=== PATIENT | female | born 1975 | race Caucasian/White ===

== ENCOUNTER 2017-03-12 15:03 | Emergency (ER) | payer OTHER ==
[~2017-03-12] VITALS: Ht 160 cm; Wt 77.0 kg
[2017-03-12 15:06] VITALS: Ht 160 cm; Wt 77.0 kg
[2017-03-12 16:40] LABS: BASOPHILS % 0.4 % (0.0-2.0); EOSINOPHILS # 0.1 10^3/ul (0.0-0.5); EOSINOPHILS % 1.6 % (0.0-7.0); HEMATOCRIT 39.7 % (37.0-47.0); HEMOGLOBIN 13.7 g/dl (12.0-16.0); LYMPHOCYTES % 27.4 % (15.0-51.0); MEAN CORPUSCULAR HEMOGLOBIN 31.7 pg (29.0-33.0); MEAN CORPUSCULAR HGB CONC 34.5 g/dl (32.0-37.0); MEAN CORPUSCULAR VOLUME 91.9 fl (82.0-101.0); MONOCYTE # 0.6 10^3/ul (0.3-0.9); MONOCYTES % 8.1 % (0.0-11.0); NEUTROPHIL # 4.6 10^3/ul (1.6-7.5); NEUTROPHILS % 62.1 % (39.0-77.0); PLATELET COUNT 248 10^3/UL (140-415); RED BLOOD COUNT 4.32 10^6/ul (4.20-5.40); RED CELL DISTRIBUTION WIDTH 12.4 % (11.5-14.5); WHITE BLOOD COUNT 7.4 10^3/ul (4.8-10.8)
[2017-03-12 16:55] LABS: ADD UMIC YES; UR ASCORBIC ACID NEGATIVE (NEGATIVE); UR BILIRUBIN (Dip) NEGATIVE (NEGATIVE); UR BLOOD (Dip) 2+ mg/dL (NEGATIVE); UR CLARITY CLEAR (CLEAR); UR COLOR YELLOW (YELLOW); UR GLUCOSE (Dip) NEGATIVE (NEGATIVE); UR KETONES (Dip) NEGATIVE (NEGATIVE); UR LEUKOCYTE ESTERASE (Dip) NEGATIVE Leu/ul (NEGATIVE); UR NITRITE (Dip) NEGATIVE (NEGATIVE); UR RBC 2 /HPF (0-5); UR SPECIFIC GRAVITY (Dip) 1.012 (1.003-1.030); UR TOTAL PROTEIN (Dip) NEGATIVE (NEGATIVE); UR UROBILINOGEN (Dip) NEGATIVE (NEGATIVE)
--- NOTE | 2017-03-12 17:03 | RADRPT ---
PROCEDURE: OB Ultrasound. CLINICAL INDICATION: Positive test. Vaginal bleeding. TECHNIQUE: Ultrasound of the pelvis was performed with transabdominal and transvaginal sonography in the axial and sagittal planes. COMPARISON: No prior study is available for comparison. FINDINGS: There is a single irregular intrauterine gestational sac. pole and yolk sac are not visualize d. Mean sac diameter is 0.80 cm. Menstrual age by ultrasound dates is 5 weeks 3 days. The right ovary is not visualized. The left ovary appears normal measuring 2.5 x 1.7 x 1.6 cm. Color Doppler and pulsed Doppler sonography demonstrate normal flow to the left ovary. There is no other pelvic mass or free fluid. IMPRESSION: 1. Single irregular intrauterine gestational sac with pole and yolk sac not visualized. This may indicate failed or early gestation. Follow-up ultrasound in 10 days is advised. 2. Right ovary not visualized. 3. Otherwise unremarkable study. RPTAT: QQ .Velasquez Butcher MD, MD Date Time Electronically viewed and signed by .Velasquez Butcher MD, on 03/12/2017 17:03 .R/
[2017-03-12] MEDS ORDERED: TYL500 PO (17:47)
--- NOTE | 2017-03-12 17:59 | ERD ---
ER Documentation Chief Complaint Date/Time DATE: 03/12/17 TIME: 17:57 Chief Complaint 7/10 pelvic pain x today, denies bleeding 7 weeks HPI This is a 41-year-old female presents to the ER stating she is currently 7 weeks and has had pelvic pain today. Pelvic pain is described as cramping in nature and nonradiating. She has not tried anything for the pain and denies any back pain. Patient denies any vaginal bleeding. She denies any urinary frequency or dysuria. Patient denies any vaginal discharge. A1. ROS 12 point review of systems was done, all negative except per HPI. Medications Home Meds Active Scripts Acetaminophen* (Tylenol*) 500 Mg Tab, 1000 MG PO Q8H Y for PAIN AND OR ELEVATED TEMP for 3 Days, TAB Prov:MINERVA TAYLOR 03/12/17 Allergies Allergies: Coded Allergies: No Known Allergy (Unverified , 03/12/17) PMhx/Soc Medical and Surgical Hx: pt denies Medical Hx, pt denies Surgical Hx Hx Alcohol Use: No Hx Substance Use: No Hx Tobacco Use: No Smoking Status: Never smoker Physical Exam Vitals Vital Signs Date Time Temp Pulse Resp B/P Pulse Ox O2 Delivery O2 Flow Rate FiO2 03/12/17 15:06 99.2 74 18 124/73 98 Physical Exam GENERAL: The patient is well developed and appropriate for usual state of health , in no apparent distress. HEENT: Atraumatic. CHEST: Clear to auscultation bilaterally. There are no rales, wheezes or rhonchi. HEART: Regular rate and rhythm. No murmurs, clicks, rubs or gallops. ABDOMEN: Soft, nontender and nondistended. Good bowel sounds. No rebound or guarding. No gross peritonitis. No gross organomegaly or masses. No [place] sign or McBurney point tenderness. BACK: No midline or flank tenderness.. NEURO: Alert and oriented. Result Diagram: 03/12/17 1615 Results 24 hrs Laboratory Tests Test 03/12/17 16:15 White Blood Count 7.410^3/ul Red Blood Count 4.3210^6/ul Hemoglobin 13.7g/dl Hematocrit 39.7% Mean Corpuscular Volume 91.9fl Mean Corpuscular Hemoglobin 31.7pg Mean Corpuscular Hemoglobin Concent 34.5g/dl Red Cell Distribution Width 12.4% Platelet Count 86094^3/UL Mean Platelet Volume 10.0fl Neutrophils % 62.1% Lymphocytes % 27.4% Monocytes % 8.1% Eosinophils % 1.6% Basophils % 0.4% Nucleated Red Blood Cells % 0.0/100WBC Neutrophils # 4.610^3/ul Lymphocytes # 2.010^3/ul Monocytes # 0.610^3/ul Eosinophils # 0.110^3/ul Basophils # 0.010^3/ul Nucleated Red Blood Cells # 0.010^3/ul Urine Color YELLOW Urine Clarity CLEAR Urine pH 5.0 Urine Specific [place] 1.012 Urine Ketones NEGATIVEmg/dL Urine Nitrite NEGATIVEmg/dL Urine Bilirubin NEGATIVEmg/dL Urine Urobilinogen NEGATIVEmg/dL Urine Leukocyte Esterase NEGATIVELeu/ul Urine Microscopic RBC 2/HPF Urine Microscopic WBC 0/HPF Urine Hemoglobin 2+mg/dL Urine Glucose NEGATIVEmg/dL Urine Total Protein NEGATIVEmg/dl Beta HCG, Quantitative 7904.5mIU/ml [place] [id number] Radiology Main Line: [phone] DIAGNOSTIC IMAGING REPORT Patient: LAILA LUCIANO : 1975 Age: 41 Sex: F [id number] DOS: 03/12/17 0000 Ordering MD: MINERVA TAYLOR PA-C Location: [facility] Room/Bed: PROCEDURE: OB Ultrasound. CLINICAL INDICATION: Positive test. Vaginal bleeding. TECHNIQUE: Ultrasound of the pelvis was performed with transabdominal and transvaginal sonography in the axial and sagittal planes. COMPARISON: No prior study is available for comparison. FINDINGS: There is a single irregular intrauterine gestational sac. pole and yolk sac are not visualized. Mean sac diameter is 0.80 cm. Menstrual age by ultrasound dates is 5 weeks 3 days. The right ovary is not visualized. The left ovary appears normal measuring 2.5 x 1.7 x 1.6 cm. Color Doppler and pulsed Doppler sonography demonstrate normal flow to the left ovary. There is no other pelvic mass or free fluid. IMPRESSION: 1. Single irregular intrauterine gestational sac with pole and yolk sac not visualized. This may indicate failed or early gestation. Follow- up ultrasound in 10 days is advised. 2. Right ovary not visualized. 3. Otherwise unremarkable study. RPTAT: QQ .Velasquez Butcher MD, MD Date Time Electronically viewed and signed by .Velasquez Butcher MD, MD on 03/12/2017 17:03 .R/ CC: MINERVA TAYLOR Procedures/MDM Differential diagnosis: Threatened , missed , incomplete , ectopic , molar , UTI, pyelonephritis. This is a 41 -year-old female presents to the ER with pelvic pain, at this time there is an irregular intrauterine gestational sac with no pole or yolk sac. Patient' s quantitative hCG was above the discriminatory zone, therefore labors on-call was consulted. Per labors patient is stable for outpatient follow-up and can return to ER in 48 hours for recheck. Patient is to return to ER sooner if symptoms worsen. My medical decision making shared with the patient she understands and agrees with plan. Departure Diagnosis: Primary Impression: Threatened Condition: Stable Patient Instructions: Possible Miscarriage (Threatened ) Additional Instructions: Regrese a estas instalaciones dentro de DOS HERZOG para un examen de seguimiento.Regrese antes si valenzuela condicin se empeora. MINERVA TAYLOR Mar 12, 2017 17:59
== END 2017-03-12 18:04 | disposition home or self-care (01) ==
LOC: MERGE 15:03 → FTE 15:03
DX: O20.0 Threatened abortion (principal); R10.2 Pelvic and perineal pain; Z3A.01 Less than 8 weeks gestation of pregnancy
CPT/HCPCS: 36415; 76801; 76817; 81001; 84702; 85025; 86900; 86901; Z7502

== ENCOUNTER 2017-03-14 08:07 | Emergency (ER) | payer MEDICAID, OTHER ==
[~2017-03-14] VITALS: Wt 75.0 kg
[~2017-03-14 08:07] MED LIST: TYL500 PO
--- NOTE | 2017-03-14 08:30 | ERD ---
ER Documentation Chief Complaint Date/Time DATE: 03/14/17 TIME: 08:28 Chief Complaint LOWER ABD PAIN WITH NO VAG BLEED WKS PREG. NO N.V HPI Is a 41-year-old female presents to the emergency department today to recheck her hormone level and get a repeat ultrasound. Denies any vaginal bleeding, abdominal pain, dysuria, fevers or chills, nausea or vomiting ROS All systems reviewed and are negative except as per history of present illness. Medications Home Meds Active Scripts Acetaminophen* (Tylenol*) 500 Mg Tab, 1000 MG PO Q8H Y for PAIN AND OR ELEVATED TEMP for 3 Days, TAB Prov:MINERVA TAYLOR C 03/12/17 Allergies Allergies: Coded Allergies: No Known Drug Allergy (Verified Allergy, Unknown, 05/05/14) PMhx/Soc History of Surgery: Yes (cholecystectomy) Anesthesia Reaction: No Hx Neurological Disorder: No Hx Respiratory Disorders: No Hx Cardiac Disorders: No Hx Psychiatric Problems: No Hx Miscellaneous Medical Probl: Yes (stomach ulcer/gerd) Hx Alcohol Use: No Hx Substance Use: No Hx Tobacco Use: No Smoking Status: Never smoker Physical Exam Vitals Vital Signs Date Time Temp Pulse Resp B/P Pulse Ox O2 Delivery O2 Flow Rate FiO2 03/14/17 08:10 98.6 68 19 130/68 99 Physical Exam Const: Obese, no acute distress Head: Atraumatic Eyes: Normal Conjunctiva ENT: Normal External Ears, Nose and Mouth. Neck: Full range of motion..~ No meningismus. Resp: Clear to auscultation bilaterally Cardio: Regular rate and rhythm, no murmurs Abd: Soft, non tender, non distended. Normal bowel sounds Skin: No petechiae or rashes Back: No midline or flank tenderness Ext: No cyanosis, or edema Neur: Awake and alert Psych: Normal Mood and Affect Results 24 hrs Laboratory Tests Test 03/14/17 08:30 Beta HCG, Quantitative 55293.0mIU/ml DIAGNOSTIC IMAGING REPORT Patient: LAILA LUCIANO : 1975 Age: 41 Sex: F MR #: [id number] DOS: 03/14/17 0823 Ordering MD: TONY CAMPBELL PA-C Location: [facility] Room/Bed: PROCEDURE: US OB. CLINICAL INDICATION: Pelvic pain. TECHNIQUE: Multiple sonographic images of the pelvis were obtained. Transabdominal and transvaginal views of the pelvis are available for review. The images were reviewed on a PACS workstation. COMPARISON: No prior studies are available for comparison. FINDINGS: The uterus measures 11.8 x 4.8 x 6.2 cm. Intrauterine gestational sac is identified. Gestational sac size is 1.2 cm corresponding to 5 weeks 5 days. No definite embryonic pole or cardiac activity is identified. A normal yolk sac is seen. No subchorionic hemorrhage is identified. The adnexa are unremarkable. There is no free fluid. There are no adnexal masses or free fluid in the pelvis. Right ovary was not visualized. Left ovary measures 2.4 x 1.5 x 1.6 cm. IMPRESSION: 1. Intrauterine gestational sac dating 5 weeks 5 days by mean sac diameter. No definite embryonic pole or cardiac activity is yet identified. This may represent a normal early intrauterine . Recommend follow-up if indicated . 2. No adnexal masses or free fluid in the pelvis. RPTAT: QQ .Colby Lowe MD, MD Date Time Electronically viewed and signed by .Colby Lowe MD, MD on 03/14/2017 09:13 .L/ CC: TONY CAMPBELL PA-C Procedures/[facility] This G 5 41-year-old female who presents to the emergency department today for repeat of her hormone level and repeat ultrasound. Patient was seen here in the emergency department on March 12, 2017, 2 days ago for pelvic pain at that time. Patient currently denies any pelvic pain. Patient's laboratory work showed normal hemoglobin at that time. She had no elevated white blood cell count. Her UA was negative for infection. Her beta quant hCG on March 12, 2017 was 7904.5. Her Rh status was A positive Patient's ultrasound showed a single irregular gestational sac with pole and yolk sac not yet visualized. It was recommended that the patient repeat an ultrasound in 10 days. Patient returns today 2 days later. Today I did repeat beta quant and ultrasound Beta quant hCG 65298.0 Ultrasound shows an intrauterine gestational sac dating 5 weeks and 5 days by mean sac diameter. There is no definite embryonic pole or cardiac activity identified. A normal yolk sac is seen no subphrenic hemorrhage is identified. Adnexa are unremarkable. There is no free fluid. There are no adnexal masses or free fluid in the pelvis I did place a call to the laborist window/distribution clerk, Dr. Alas who feels that the patient is stable for discharge and outpatient management. He recommended that the patient can get a repeat ultrasound in 1 week and follow her beta quant again at that time. Patient is scheduled to see her gis database administrator at [facility] on March 19. I have explained to the patient that she does need to keep that appointment. Patient's ultrasound and beta quant is progressing at this time she may have a normal early intrauterine based on her latest ultrasound. Other differentials to consider early failed given that she does not yet have pole identified or cardiac activity identified however this may just be an early . At this time I do have low suspicion for ectopic , tubo-ovarian abscess or ovarian torsion. Patient has no abdominal pain on physical exam and of low suspicion for acute surgical abdomen. At this time the patient is stable for discharge and outpatient management. Patient should follow up with their PCP in the next 1-2 days. They may return to the emergency department sooner for any persistent or worsening of symptoms. Patient understood and agreed with the plan. Departure Diagnosis: Primary Impression: Follow-up exam Condition: TONY Lazar PA-C Mar 14, 2017 08:30
--- NOTE | 2017-03-14 09:13 | RADRPT ---
PROCEDURE: US OB. CLINICAL INDICATION: Pelvic pain. TECHNIQUE: Multiple sonographic images of the pelvis were obtained. Transabdominal and transvagin al views of the pelvis are available for review. The images were reviewed on a PACS workstation. COMPARISON: No prior studies are available for comparison. FINDINGS: The uterus measures 11.8 x 4.8 x 6.2 cm. Intrauterine gestational sac is identified. Gestational s ac size is 1.2 cm corresponding to 5 weeks 5 days. No definite embryonic pole or cardiac activity is identified. A normal yolk sac is seen. No subchorionic hemorrhage is identified. The adnexa are u nremarkable. There is no free fluid. There are no adnexal masses or free fluid in the pelvis. Righ t ovary was not visualized. Left ovary measures 2.4 x 1.5 x 1.6 cm. IMPRESSION: 1. Intrauterine gestational sac dating 5 weeks 5 days by mean sac diameter. No definite embryonic p ole or cardiac activity is yet identified. This may represent a normal early intrauterine . Recommend follow-up if indicated . 2. No adnexal masses or free fluid in the pelvis. RPTAT: QQ .Colby Lowe MD, Date Time Electronically viewed and signed by .Colby Lowe MD, on 03/14/2017 09:13 .L/
== END 2017-03-14 09:51 | disposition home or self-care (01) ==
LOC: FTE 08:07
DX: O26.891 Other specified pregnancy related conditions, first trimester (principal); R10.30 Lower abdominal pain, unspecified; R10.2 Pelvic and perineal pain; Z3A.01 Less than 8 weeks gestation of pregnancy
CPT/HCPCS: 36415; 76801; 76817; 84702; Z7502

== ENCOUNTER 2017-05-15 15:53 | Emergency (ER) | payer OTHER ==
[~2017-05-15] VITALS: Wt 76.5 kg
[2017-05-15] MEDS ORDERED: ACETAMINOPHEN 325 MG TAB PO STA (16:53)
[2017-05-15 17:33] LABS: ADD UMIC NO; UR ASCORBIC ACID 40 mg/dL (NEGATIVE); UR BILIRUBIN (Dip) NEGATIVE (NEGATIVE); UR BLOOD (Dip) NEGATIVE (NEGATIVE); UR CLARITY CLEAR (CLEAR); UR COLOR YELLOW (YELLOW); UR GLUCOSE (Dip) NEGATIVE (NEGATIVE); UR KETONES (Dip) NEGATIVE (NEGATIVE); UR LEUKOCYTE ESTERASE (Dip) NEGATIVE Leu/ul (NEGATIVE); UR NITRITE (Dip) NEGATIVE (NEGATIVE); UR SPECIFIC GRAVITY (Dip) 1.021 (1.003-1.030); UR TOTAL PROTEIN (Dip) NEGATIVE (NEGATIVE); UR UROBILINOGEN (Dip) NEGATIVE (NEGATIVE)
[2017-05-15 17:35] LABS: BASOPHILS % 0.4 % (0.0-2.0); EOSINOPHILS # 0.1 10^3/ul (0.0-0.5); HEMATOCRIT 38.6 % (37.0-47.0); HEMOGLOBIN 13.5 g/dl (12.0-16.0); LYMPHOCYTES # 1.7 10^3/ul (0.8-2.9); LYMPHOCYTES % 21.1 % (15.0-51.0); MEAN CORPUSCULAR HEMOGLOBIN 32.5 pg (29.0-33.0); MEAN PLATELET VOLUME 9.7 fl (7.4-10.4); MONOCYTE # 0.7 10^3/ul (0.3-0.9); MONOCYTES % 8.3 % (0.0-11.0); NEUTROPHIL # 5.5 10^3/ul (1.6-7.5); NEUTROPHILS % 68.8 % (39.0-77.0); PLATELET COUNT 237 10^3/UL (140-415); RED BLOOD COUNT 4.15 10^6/ul (4.20-5.40); RED CELL DISTRIBUTION WIDTH 12.3 % (11.5-14.5)
--- NOTE | 2017-05-15 17:40 | RADRPT ---
PROCEDURE: US OB. CLINICAL INDICATION: Size and dates , pelvic pain TECHNIQUE: Multiple sonographic images of the pelvis and gravid uterus were obtained. The images were reviewed on a PACS workstation. COMPARISON: 03/14/17 FINDINGS: The cervix is closed with a length of 5.2 cm. There is a single viable intrauterine gestation. Cardiac activity is present with 146 beats per min iqra. There is a variable presentation. The placenta is anterior. There is no evidence for an abruption or placenta previa. MVP = 3.6 cm. Measurements were made in order to determine age. The results are as follows: BPD =3.0 cm HC =10.3 cm AC =9.7 cm FL =1.6 cm Estimated gestational age of approximately 15 weeks and 1 day based on ultrasound measurements. The estimated date of delivery is 11/05/17, based on ultrasound measurements. The ovaries are not visualized. The EFW = 117 g RPTAT: AA IMPRESSION: Single viable intrauterine gestation of approximately 15 weeks and 1 day based on ultrasound measur ements. .Joseph Marino MD, Date Time Electronically viewed and signed by .Joseph Marino MD, on 05/15/2017 17:39 .S/
[2017-05-15 17:47] LABS: ALBUMIN 3.7 g/dl (3.3-4.9); ALBUMIN/GLOBULIN RATIO 1.08; BILIRUBIN,INDIRECT 0.1 mg/dl (0-1.1); BILIRUBIN,TOTAL 0.1 mg/dl (0.2-1.3); CALCIUM 8.7 mg/dl (8.4-10.2); CREATININE 0.59 mg/dl (0.44-1.00); TOTAL PROTEIN 7.1 g/dl (6.1-8.1)
--- NOTE | 2017-05-15 18:42 | ERD ---
ER Documentation Chief Complaint Date/Time DATE: 05/15/17 TIME: 18:40 Chief Complaint PELVIC PAIN, 4 MONTHS PG, A1, NO VB HPI Patient is a 41-year-old female who is A1 approximately 16 weeks complaining of pelvic pain that began yesterday. She had one episode of vomiting. Pain is mild to moderate but at times is sharp. Denies any vaginal bleeding or unusual discharge. She has not taken any medication for pain. She only is taking her vitamins. ROS All systems reviewed and are negative except as per history of present illness. Medications Home Meds Active Scripts Acetaminophen* (Tylenol*) 500 Mg Tab, 1000 MG PO Q8H Y for PAIN AND OR ELEVATED TEMP for 3 Days, TAB Prov:MINERVA TAYLOR 03/12/17 Allergies Allergies: Coded Allergies: No Known Drug Allergy (Verified Allergy, Unknown, 05/15/17) PMhx/Soc History of Surgery: Yes (cholecystectomy) Anesthesia Reaction: No Hx Neurological Disorder: No Hx Respiratory Disorders: No Hx Cardiac Disorders: No Hx Psychiatric Problems: No Hx Miscellaneous Medical Probl: Yes (stomach ulcer/gerd) Hx Alcohol Use: No Hx Substance Use: No Hx Tobacco Use: No Smoking Status: Never smoker FmHx Family History: No diabetes Physical Exam Vitals Vital Signs Date Time Temp Pulse Resp B/P Pulse Ox O2 Delivery O2 Flow Rate FiO2 05/15/17 15:57 97.8 69 17 113/62 98 Physical Exam INITIAL VITAL SIGNS: Reviewed by me GENERAL: Awake, alert and oriented x 4, well appearing, nontoxic, speaking in full sentences. No acute distress RESPIRATORY: Clear to auscultation bilaterally. Symmetric chest wall rise. No wheezing or rales. No accessory muscle use. CV: Regular rate and rhythm. No murmurs, rubs, or gallops. ABDOMEN: Soft, non-distended. Nontender. Negative [place]. Negative McBurneys point tenderness. No CVA tenderness bilaterally. No guarding. No rebound. : Deffered. EXTREMITIES: No clubbing or cyanosis. No edema. Moving all extremities normally. BACK: No midline tenderness to palpation. No step-offs. Result Diagram: 05/15/17 1658 05/15/17 1658 Results 24 hrs Laboratory Tests Test 05/15/17 16:58 10/6/17 17:00 White Blood Count 8.010^3/ul Red Blood Count 4.1510^6/ul Hemoglobin 13.5g/dl Hematocrit 38.6% Mean Corpuscular Volume 93.0fl Mean Corpuscular Hemoglobin 32.5pg Mean Corpuscular Hemoglobin Concent 35.0g/dl Red Cell Distribution Width 12.3% Platelet Count 77535^3/UL Mean Platelet Volume 9.7fl Neutrophils % 68.8% Lymphocytes % 21.1% Monocytes % 8.3% Eosinophils % 1.0% Basophils % 0.4% Nucleated Red Blood Cells % 0.0/100WBC Neutrophils # 5.510^3/ul Lymphocytes # 1.710^3/ul Monocytes # 0.710^3/ul Eosinophils # 0.110^3/ul Basophils # 0.010^3/ul Nucleated Red Blood Cells # 0.010^3/ul Sodium Level 137mmol/L Potassium Level 4.0mmol/L Chloride Level 105mmol/L Carbon Dioxide Level 26mmol/L Anion Gap 10 Blood Urea Nitrogen 8mg/dl Creatinine 0.59mg/dl Glucose Level 86mg/dl Calcium Level 8.7mg/dl Total Bilirubin 0.1mg/dl Direct Bilirubin 0.00mg/dl Indirect Bilirubin 0.1mg/dl Aspartate Amino Transf (AST/SGOT) 29IU/L Alanine Aminotransferase (ALT/SGPT) 38IU/L Alkaline Phosphatase 48IU/L Total Protein 7.1g/dl Albumin 3.7g/dl Globulin 3.40g/dl Albumin/Globulin Ratio 1.08 Beta HCG, Quantitative 42645.0mIU/ml Urine Color YELLOW Urine Clarity CLEAR Urine pH 7.0 Urine Specific [place] 1.021 Urine Ketones NEGATIVEmg/dL Urine Nitrite NEGATIVEmg/dL Urine Bilirubin NEGATIVEmg/dL Urine Urobilinogen NEGATIVEmg/dL Urine Leukocyte Esterase NEGATIVELeu/ul Urine Hemoglobin NEGATIVEmg/dL Urine Glucose NEGATIVEmg/dL Urine Total Protein NEGATIVEmg/dl Current Medications Medications (Trade) Dose Ordered Sig/Gus Route PRN Reason Start Time Stop Time Status Last Admin Dose Admin Acetaminophen (Tylenol Tab) 650 mg ONCE STAT PO 05/15/17 16:53 05/15/17 16:54 DC Procedures/MDM 41-year-old presents with pelvic pain during . Patients is alert, oriented, well appearing, and in no distress with normal vital signs. There is no fever, tachycardia, or tachypnea. Laboratory analysis shows no evidence of acute emergent abnormality. No evidence of significant leukocytosis suggesting systemic infection or severe anemia. No evidence of acute renal or liver failure , no evidence of severe alkalosis or acidosis. ultrasound unremarkable. Patient discharged with copies of everything and I recommended Tylenol at home for pain control. Patient counseled regarding my diagnostic impression and care plan. Prior to discharge all questions answered. Pt agrees with treatment plan and understands strict return precautions. Pt is instructed to follow up with primary care provider within 24-48 hours. Precautionary instructions provided including instructions to return to the ER if not improving or for any worsening or changing symptoms or concerns. Departure Diagnosis: Primary Impression: Pelvic pain complicating Condition: Stable Patient Instructions: Pelvic Pain In : Unclear (2-3 Trimester) Additional Instructions: Llame al doctor MAANA y rajeev aidan JADYN PARA DENTRO DE 1-2 SKAGGS.Dgale a la secretaria que nosotros le instruimos hacer esta jadyn.Avise o llame si valenzuela condicin se empeora antes de la jadyn. Regresa aqui si peor o no mejor. ROBERT CARRILLO PA-C May 15, 2017 18:42
[2017-05-15 18:48] VITALS: BP 118/68; PULSE 88; RESP 18
== END 2017-05-15 18:49 | disposition home or self-care (01) ==
LOC: FTE 15:53
DX: O26.892 Other specified pregnancy related conditions, second trimester (principal); R10.2 Pelvic and perineal pain; Z3A.15 15 weeks gestation of pregnancy
CPT/HCPCS: 76805; 80053; 81003; 84702; 85025; Z7502; Z7610

== ENCOUNTER 2017-08-08 13:42 | Outpatient (CLI) | END 2017-08-08 17:25 | disposition home or self-care (01) ==

== ENCOUNTER 2017-10-19 22:38 | Inpatient (IN) | END 2017-10-25 18:55 | disposition home or self-care (01) | DRG 766 ==